=== PATIENT | female | born 2000 | race African-American/Black ===

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

== ENCOUNTER 2021-01-01 20:49 | Day surgery (SDC) | payer OTHER ==
[2021-01-01 22:51] VITALS: BMI 30.7
[2021-01-01] MEDS ORDERED: hydrALAZINE 20 MG/ML VIAL SLOW IVP PRN (23:17)
[2021-01-01] MEDS ORDERED: Lactated Ringer's 1,000 ML IV SCH ×2 (23:30→23:35)
[2021-01-01] MEDS ORDERED: Ondansetron PF 4 MG/2 ML Vial IVP SCH (23:30)
[2021-01-01] MEDS ORDERED: Bicitra 30 ML UDCUP PO SCH (23:45)
[2021-01-02 00:07] LABS: Anion Gap 18 mmol/L (10-20); BUN (Urea Nitrogen) 6 mg/dL (8.4-21.0); Calc. Creatinine Clearance 192 mL/min (70-130); Calcium 9.1 mg/dL (7.8-10.44); Carbon Dioxide 20 mmol/L (22-29); Chloride 102 mmol/L (98-107); Glucose 68 mg/dL (70-105); Potassium 3.7 mmol/L (3.5-5.1); Sodium 136 mmol/L (136-145)
== END 2021-01-02 01:25 | disposition home or self-care (01) ==
LOC: CSHERS 20:49 → CSHLD/OP 22:21
PROVIDERS: ATTEND Family Medicine
DX: O21.2 Late vomiting of pregnancy (principal); O99.891 Other specified diseases and conditions complicating pregnancy; R10.9 Unspecified abdominal pain; Z3A.25 25 weeks gestation of pregnancy; Z87.891 Personal history of nicotine dependence
CPT/HCPCS: 80048; 96360; 96361; 96375; 99283; J2405

== ENCOUNTER 2021-02-05 15:19 | Day surgery (SDC) | payer OTHER ==
[2021-02-05] MEDS ORDERED: hydrALAZINE 20 MG/ML VIAL SLOW IVP PRN (15:41)
[2021-02-05 16:46] LABS: #Basophils 0.1 10x3/uL (0.0-0.2); #Eosinphils 0.1 10x3/uL (0.0-0.5); #Monocytes 1.1 10x3/uL (0.0-1.1); #Neutrophils 9.1 10x3/uL (1.5-8.4); %Basophils 0.4 % (0.0-2.0); %Eosinophils 0.4 % (0.0-6.0); %Lymphocytes 23.8 % (18.0-47.0); %Monocytes 7.7 % (0.0-10.0); %Neutrophils 66.1 % (40.0-75.0); Hemoglobin 10.2 g/dL (12.0-15.5); Mean Corpuscular HGB CONC 33.9 g/dL (32.0-36.0); Mean Corpuscular Hemoglobin 31.1 pg (27.0-33.0); Mean Corpuscular Volume 91.8 fl (81.6-98.3); Mean Platelet Volume 10.3 fl (7.4-10.4); Platelet Count 207 10x3/uL (150-450); RBC Distribution Width 12.6 % (11.5-14.5); Red Blood Cell (RBC) Count 3.28 10x6/uL (3.90-5.03); White Blood Cell (WBC) Count 13.7 10x3/uL (3.5-10.5)
[2021-02-05 16:51] VITALS: BMI 30.7
== END 2021-02-05 18:53 | disposition home or self-care (01) ==
LOC: CSHLD/OP 15:19
PROVIDERS: ATTEND Family Medicine
DX: O99.891 Other specified diseases and conditions complicating pregnancy (principal); R55 Syncope and collapse; O99.013 Anemia complicating pregnancy, third trimester; D64.9 Anemia, unspecified; Z3A.30 30 weeks gestation of pregnancy
CPT/HCPCS: 85025; 93005; 93010

== ENCOUNTER 2022-01-12 00:44 | Emergency (ER) | payer OTHER | END 2022-01-12 01:53 | disposition left against medical advice (07) | LOC: CSHERS 00:44 | DX: Z53.21 Procedure and treatment not carried out due to patient leaving prior to being seen by health care provider (principal) ==

== ENCOUNTER 2023-07-08 05:30 | Inpatient (IN) | payer MEDICAID, OTHER ==
[2023-07-08 06:18] VITALS: BMI 34.5
[2023-07-08] MEDS ORDERED: Ondansetron PF 4 MG/2 ML Vial IVP PRN ×3 (06:18→18:42)
[2023-07-08] MEDS ORDERED: Misoprostol 200 MCG TAB PR PRN (06:18)
[2023-07-08] MEDS ORDERED: Methylergonovine 0.2 MG/ML VIAL IM PRN (06:18)
[2023-07-08] MEDS ORDERED: Ibuprofen 800 MG TAB PO PRN (06:18)
[2023-07-08] MEDS ORDERED: Acetaminophen 500 MG TAB PO PRN (06:18)
[2023-07-08] MEDS ORDERED: Promethazine HCl 25 MG/ML VIAL IM PRN ×3 (06:18→18:42)
[2023-07-08] MEDS ORDERED: Tranexamic Acid 1,000 MG/10 ML VIAL IVP PRN (06:18)
[2023-07-08] MEDS ORDERED: hydrALAZINE 20 MG/ML VIAL SLOW IVP PRN ×2 (06:18→18:42)
[2023-07-08] MEDS ORDERED: Carboprost 250 MCG/ML AMP IM PRN (06:18)
[2023-07-08] MEDS ORDERED: Lidocaine 1% (PF) 30 ML VIAL SC PRN (06:18)
[2023-07-08] MEDS ORDERED: HYDROcodone/Acetaminophen 5/325 mg Tablet PO PRN (06:18)
[2023-07-08] MEDS ORDERED: fentaNYL 50 mcg/mL 1 mL Vial SLOW IVP PRN (06:18)
[2023-07-08] MEDS ORDERED: Diphenoxylate HCl/Atropine Tablet PO PRN (06:18)
[2023-07-08] MEDS ORDERED: Oxytocin 30 units/NS 500 ML 500 ML IV SCH ×3 (06:30)
[2023-07-08] MEDS ORDERED: Lactated Ringer's 1,000 ML IV SCH (06:30)
[2023-07-08 07:01] LABS: Hematocrit 31.7 % (34.9-44.5); Hemoglobin 10.6 g/dL (12.0-15.5); Mean Corpuscular HGB CONC 33.4 g/dL (32.0-36.0); Mean Corpuscular Hemoglobin 29.3 pg (27.0-33.0); Mean Corpuscular Volume 87.6 fl (81.6-98.3); Mean Platelet Volume 9.9 fl (7.4-10.4); Platelet Count 207 10x3/uL (150-450); Red Blood Cell (RBC) Count 3.62 10x6/uL (3.90-5.03); White Blood Cell (WBC) Count 10.8 10x3/uL (3.5-10.5)
[2023-07-08 07:44] LABS: Syphilis Antibody Nonreactive (Nonreactive); Syphilis Antibody Index 0.13 S/CO (<1.00 Non-Reactive)
[2023-07-08 07:45] LABS: HBSAg Index 0.19 S/CO (0-0.99); Hep B Surf Ag - L&D Non-Reactive S/CO (NonReactive)
[2023-07-08] MEDS ORDERED: fentaNYL/Ropivacaine Epidural 100 ML ONE (08:13)
[2023-07-08] MEDS ORDERED: diphenhydrAMINE 50 MG/ML VIAL IVP PRN (11:16)
[2023-07-08] MEDS ORDERED: Moisturizing Cream (Eucerin) 113 GM JAR TOP PRN (11:16)
[2023-07-08] MEDS ORDERED: ePHEDrine Sulfate 50 MG/10 ML VIAL SLOW IVP PRN (11:16)
[2023-07-08] MEDS ORDERED: Acetaminophen 325 MG TAB PO PRN (11:16)
[2023-07-08] MEDS ORDERED: Lactated Ringer's 500 ML IV PRN (11:16)
[2023-07-08] MEDS ORDERED: Naloxone HCl 0.4 mg/ml Vial IVP PRN ×2 (11:16)
[2023-07-08] MEDS ORDERED: Communication Order-Pharmacy FS SCH (11:30)
[2023-07-08] MEDS ORDERED: fentaNYL 2 mcg/Ropivacaine 0.2% Epidural 100 ML CADD EPIDURAL SCH (11:30)
[2023-07-08] MEDS ORDERED: Bupivacaine 0.25% HCL 30 ML VIAL ONE (13:00)
[2023-07-08] MEDS ORDERED: Boostrix 0.5 ML (Tdap) VIAL (>/=7 yrs of age) IM ONE (18:42)
[2023-07-08] MEDS ORDERED: Benzocaine-Menthol 82.5 ML CAN TOP PRN (18:42)
[2023-07-08] MEDS ORDERED: diphenhydrAMINE 25 MG CAP PO PRN (18:42)
[2023-07-08] MEDS ORDERED: Bisacodyl 10 MG SUPP PR PRN (18:42)
[2023-07-08] MEDS ORDERED: Milk Of Magnesia 30 ML UDCUP PO PRN (18:42)
[2023-07-08] MEDS: Ibuprofen 800 MG TAB PO SCH (21:42)
[2023-07-08] MEDS: Docusate 100 MG CAP PO SCH (21:46)
[2023-07-09] MEDS: HYDROcodone/Acetaminophen 5/325 mg Tablet PO PRN ×5 (00:49→20:16)
[2023-07-09] MEDS: Ibuprofen 800 MG TAB PO SCH ×3 (05:03→20:16)
[2023-07-09] MEDS: Ferrous Sulfate 325 MG TAB PO SCH ×2 (07:37→16:25)
[2023-07-09] MEDS: Docusate 100 MG CAP PO SCH ×2 (09:11→20:16)
[2023-07-10] MEDS: HYDROcodone/Acetaminophen 5/325 mg Tablet PO PRN (02:33)
[2023-07-10] MEDS: Ibuprofen 800 MG TAB PO SCH ×2 (05:08→13:35)
[2023-07-10 07:43] VITALS: BP 122/78; TEMP 98.5
[2023-07-10] MEDS: Ferrous Sulfate 325 MG TAB PO SCH (09:10)
[2023-07-10] MEDS: Docusate 100 MG CAP PO SCH (09:25)
== END 2023-07-10 18:45 | disposition home or self-care (01) | DRG 807 ==
LOC: CSHLD 05:48 → CSHPP 20:23
PROVIDERS: ADMIT Family Medicine; ATTEND Family Medicine
PROC: 10E0XZZ Delivery of Products of Conception, External Approach (ICD-10-PCS; principal; 2023-07-08)
PROC: 10907ZC Drainage of Amniotic Fluid, Therapeutic from Products of Conception, Via Natural or Artificial Opening (ICD-10-PCS; 2023-07-08)
PROC: 3E033VJ Introduction of Other Hormone into Peripheral Vein, Percutaneous Approach (ICD-10-PCS; 2023-07-08)
DX: O80 Encounter for full-term uncomplicated delivery (principal); Z37.0 Single live birth; Z3A.39 39 weeks gestation of pregnancy
CPT/HCPCS: 36415; 51702; 85027; 86780; 86850; 86900; 86901; 87340; J2405; S0020

== ENCOUNTER 2024-03-23 12:34 | Outpatient (CLI) | payer OTHER | END 2024-03-23 12:35 | disposition home or self-care (01) | LOC: CSHULT 12:34 | DX: Z34.82 Encounter for supervision of other normal pregnancy, second trimester (principal) | CPT/HCPCS: 76805 ==

== ENCOUNTER 2024-06-22 08:50 | Inpatient (IN) | payer OTHER ==
[2024-06-22 09:18] VITALS: BMI 36.4
[2024-06-22] MEDS ORDERED: Tranexamic Acid 1,000 MG/10 ML VIAL IVP PRN (09:33)
[2024-06-22] MEDS ORDERED: hydrALAZINE 20 MG/ML VIAL SLOW IVP PRN ×2 (09:33→19:47)
[2024-06-22] MEDS ORDERED: Lidocaine 1% (PF) 30 ML VIAL SC PRN (09:33)
[2024-06-22] MEDS ORDERED: fentaNYL 50 mcg/mL 1 mL Vial SLOW IVP PRN (09:33)
[2024-06-22] MEDS ORDERED: Carboprost 250 MCG/ML AMP IM PRN (09:33)
[2024-06-22] MEDS ORDERED: Promethazine HCl 25 MG/ML VIAL IM PRN ×3 (09:33→19:47)
[2024-06-22] MEDS ORDERED: Diphenoxylate HCl/Atropine Tablet PO PRN (09:33)
[2024-06-22] MEDS ORDERED: HYDROcodone/Acetaminophen 5/325 mg Tablet PO PRN (09:33)
[2024-06-22] MEDS ORDERED: Misoprostol 200 MCG TAB PR PRN (09:33)
[2024-06-22] MEDS ORDERED: Methylergonovine 0.2 MG/ML VIAL IM PRN (09:33)
[2024-06-22] MEDS: Lactated Ringer's 1,000 ML IV SCH (09:40)
[2024-06-22] MEDS ORDERED: Penicillin G Potassium 5 MILL.UNITS in Sodium Chloride 0.9% 100 ML IVPB SCH (09:45)
[2024-06-22] MEDS: Penicillin G Potassium 5 MILL.UNITS VIAL ONE (09:45)
[2024-06-22] MEDS ORDERED: Oxytocin 30 units/NS 500 ML 500 ML IV SCH ×2 (09:45)
[2024-06-22 09:59] LABS: Hematocrit 31.4 % (34.9-44.5); Hemoglobin 10.2 g/dL (12.0-15.5); Mean Corpuscular HGB CONC 32.5 g/dL (32.0-36.0); Mean Corpuscular Hemoglobin 28.5 pg (27.0-33.0); Mean Corpuscular Volume 87.7 fL (81.6-98.3); Mean Platelet Volume 10.3 fL (7.4-10.4); Platelet Count 185 10x3/uL (150-450); RBC Distribution Width 13.8 % (11.5-14.5); Red Blood Cell (RBC) Count 3.58 10x6/uL (3.90-5.03); White Blood Cell (WBC) Count 8.9 10x3/uL (3.5-10.5)
[2024-06-22 10:38] LABS: Syphilis Antibody Nonreactive (Nonreactive)
[2024-06-22] MEDS: fentaNYL/Ropivacaine Epidural 100 ML ONE (10:38)
[2024-06-22 10:40] LABS: HBsAg Index 0.21 S/CO (0-0.99); Hep B Surf Ag - L&D Non-Reactive S/CO (NonReactive)
[2024-06-22] MEDS ORDERED: Moisturizing Cream (Eucerin) 113 GM JAR TOP PRN (10:40)
[2024-06-22] MEDS ORDERED: Lactated Ringer's 500 ML IV PRN (10:40)
[2024-06-22] MEDS ORDERED: Acetaminophen 325 MG TAB PO PRN (10:40)
[2024-06-22] MEDS ORDERED: diphenhydrAMINE 50 MG/ML VIAL IVP PRN (10:40)
[2024-06-22] MEDS ORDERED: Naloxone HCl 0.4 mg/ml Vial IVP PRN ×2 (10:40)
[2024-06-22] MEDS ORDERED: ePHEDrine Sulfate 50 MG/10 ML VIAL SLOW IVP PRN (10:40)
[2024-06-22] MEDS ORDERED: Ondansetron PF 4 MG/2 ML Vial IVP PRN ×2 (10:40→19:47)
[2024-06-22] MEDS ORDERED: fentaNYL 2 mcg/Ropivacaine 0.2% Epidural 100 ML CADD EPIDURAL SCH (10:45)
[2024-06-22] MEDS ORDERED: Communication Order-Pharmacy FS SCH (10:45)
[2024-06-22] MEDS: Ondansetron PF 4 MG/2 ML Vial IVP PRN (11:08)
[2024-06-22] MEDS: Oxytocin 30 units/NS 500 ML 500 ML IV SCH (11:14)
[2024-06-22] MEDS: Penicillin G 2.5 MILL.units 2.5 MILL.UNITS in Premix 1 BAG IVPB SCH (12:26)
[2024-06-22] MEDS: Acetaminophen 500 MG TAB PO PRN (18:10)
[2024-06-22] MEDS ORDERED: Benzocaine-Menthol 82.5 ML CAN TOP PRN (19:47)
[2024-06-22] MEDS ORDERED: Milk Of Magnesia 30 ML UDCUP PO PRN (19:47)
[2024-06-22] MEDS ORDERED: Bisacodyl 10 MG SUPP PR PRN (19:47)
[2024-06-22] MEDS ORDERED: diphenhydrAMINE 25 MG CAP PO PRN (19:47)
[2024-06-22] MEDS ORDERED: Boostrix 0.5 ML (Tdap) VIAL (>/=7 yrs of age) IM ONE (19:47)
[2024-06-22] MEDS: Docusate 100 MG CAP PO SCH (21:30)
[2024-06-22] MEDS: Ibuprofen 800 MG TAB PO SCH (21:30)
[2024-06-23] MEDS: HYDROcodone/Acetaminophen 5/325 mg Tablet PO PRN (01:42)
[2024-06-23] MEDS: Prenatal Vitamin 1 TAB PO SCH (07:31)
[2024-06-23] MEDS: Ferrous Sulfate 325 MG TAB PO SCH (08:57)
[2024-06-23 17:56] VITALS: BP 132/86; TEMP 98.1
== END 2024-06-23 18:15 | disposition home or self-care (01) | DRG 806 ==
LOC: CSHLD 08:50 → CSHPP 20:00
PROVIDERS: ADMIT Family Medicine; ATTEND Family Medicine
PROC: 10E0XZZ Delivery of Products of Conception, External Approach (ICD-10-PCS; principal; 2024-06-22)
PROC: 10907ZC Drainage of Amniotic Fluid, Therapeutic from Products of Conception, Via Natural or Artificial Opening (ICD-10-PCS; 2024-06-22)
DX: O99.824 Streptococcus B carrier state complicating childbirth (principal); O98.32 Other infections with a predominantly sexual mode of transmission complicating childbirth; Z37.0 Single live birth; Z3A.38 38 weeks gestation of pregnancy; Z79.82 Long term (current) use of aspirin; Z79.899 Other long term (current) drug therapy; A60.00 Herpesviral infection of urogenital system, unspecified
CPT/HCPCS: 51702; 85027; 86780; 86850; 86900; 86901; 87340; J2405; J2540; J2590; J7120

== ENCOUNTER 2025-07-13 19:00 | Inpatient (IN) | payer OTHER ==
[2025-07-13 21:55] VITALS: BMI 37.1
[2025-07-13] MEDS ORDERED: Diphenoxylate HCl/Atropine Tablet PO PRN (22:28)
[2025-07-13] MEDS ORDERED: hydrALAZINE 20 MG/ML VIAL SLOW IVP PRN (22:28)
[2025-07-13] MEDS ORDERED: Ondansetron PF 4 MG/2 ML Vial IVP PRN (22:28)
[2025-07-13] MEDS ORDERED: Lidocaine 1% (PF) 30 ML VIAL SC PRN (22:28)
[2025-07-13] MEDS ORDERED: Tranexamic Acid 1,000 MG/10 ML VIAL IVP PRN (22:28)
[2025-07-13] MEDS ORDERED: Carboprost 250 MCG/ML AMP IM PRN (22:28)
[2025-07-13] MEDS ORDERED: Acetaminophen 500 MG TAB PO PRN (22:28)
[2025-07-13] MEDS ORDERED: Methylergonovine 0.2 MG/ML VIAL IM PRN (22:28)
[2025-07-13] MEDS ORDERED: Ibuprofen 800 MG TAB PO PRN (22:30)
[2025-07-13] MEDS ORDERED: HYDROcodone/Acetaminophen 5/325 mg Tablet PO PRN (22:30)
[2025-07-13] MEDS ORDERED: Oxytocin 30 units/NS 500 ML 500 ML IV SCH (22:30)
[2025-07-13 22:57] LABS: Hematocrit 29.4 % (34.9-44.5); Hemoglobin 9.5 g/dL (12.0-15.5); Mean Corpuscular Hemoglobin 26.8 pg (27.0-33.0); Mean Corpuscular Volume 82.8 fL (81.6-98.3); Platelet Count 210 10x3/uL (150-450); Red Blood Cell (RBC) Count 3.55 10x6/uL (3.90-5.03); White Blood Cell (WBC) Count 9.24 10x3/uL (3.5-10.5)
[2025-07-13 23:19] LABS: Syphilis Antibody Index 0.14 S/CO (<1.00 Non-Reactive)
[2025-07-13 23:21] LABS: Hep B Surf Ag - L&D Non-Reactive S/CO (NonReactive)
[2025-07-14] MEDS: Penicillin G Potassium 5 MILL.UNITS in Sodium Chloride 0.9% 100 ML IVPB SCH (02:03)
[2025-07-14] MEDS: Penicillin G 2.5 MILL.units 2.5 MILL.UNITS in Premix 1 BAG IVPB SCH (05:53)
[2025-07-14] MEDS: Oxytocin 30 units/NS 500 ML 500 ML IV SCH (06:40)
[2025-07-14] MEDS ORDERED: Ondansetron PF 4 MG/2 ML Vial IVP PRN ×2 (11:43→19:58)
[2025-07-14] MEDS ORDERED: Acetaminophen 325 MG TAB PO PRN (11:43)
[2025-07-14] MEDS ORDERED: diphenhydrAMINE 50 MG/ML VIAL IVP PRN (11:43)
[2025-07-14] MEDS ORDERED: Communication Order-Pharmacy FS SCH (11:45)
[2025-07-14] MEDS ORDERED: fentaNYL 2 mcg/Ropivacaine 0.2% Epidural 100 ML CADD EPIDURAL SCH (11:45)
[2025-07-14] MEDS ORDERED: Bisacodyl 10 MG SUPP PR PRN (19:58)
[2025-07-14] MEDS ORDERED: Preparation H Ointment 28 GM TUBE PR PRN (19:58)
[2025-07-14] MEDS ORDERED: Boostrix 0.5 ML (Tdap) VIAL (>/=7 yrs of age) IM ONE (19:58)
[2025-07-14] MEDS ORDERED: Lanolin Ointment 7 GM TUBE TOP PRN (19:58)
[2025-07-14] MEDS ORDERED: Benzocaine-Menthol 82.5 ML CAN TOP PRN (19:58)
[2025-07-14] MEDS ORDERED: Milk Of Magnesia 30 ML UDCUP PO PRN (19:58)
[2025-07-14] MEDS ORDERED: diphenhydrAMINE 25 MG CAP PO PRN (19:58)
[2025-07-14] MEDS ORDERED: hydrALAZINE 20 MG/ML VIAL SLOW IVP PRN (19:58)
[2025-07-14] MEDS: Ibuprofen 800 MG TAB PO SCH (20:31)
[2025-07-14] MEDS: fentaNYL/Ropivacaine Epidural 100 ML ONE (20:54)
[2025-07-14] MEDS ORDERED: Bupivacaine 0.25% HCL 30 ML VIAL ONE (21:31)
[2025-07-14] MEDS: HYDROcodone/Acetaminophen 5/325 mg Tablet PO PRN (23:17)
[2025-07-15] MEDS: Ferrous Sulfate 325 MG TAB PO SCH (08:47)
[2025-07-15 11:43] VITALS: TEMP 98.2
[2025-07-15] MEDS: NIFEdipine XL 30 MG ER.TAB PO SCH (12:53)
[2025-07-15 15:50] VITALS: BP 128/80
== END 2025-07-15 18:30 | disposition home or self-care (01) | DRG 807 ==
LOC: CSHLD 20:42 → CSHPP 07-14 19:38
PROVIDERS: ADMIT Family Medicine; ATTEND Family Medicine
PROC: 10907ZC Drainage of Amniotic Fluid, Therapeutic from Products of Conception, Via Natural or Artificial Opening (ICD-10-PCS; 2025-07-14)
PROC: 10E0XZZ Delivery of Products of Conception, External Approach (ICD-10-PCS; principal; 2025-07-15)
PROC: 0UQMXZZ Repair Vulva, External Approach (ICD-10-PCS; 2025-07-15)
DX: O99.824 Streptococcus B carrier state complicating childbirth (principal); Z37.0 Single live birth; Z3A.39 39 weeks gestation of pregnancy; O71.82 Other specified trauma to perineum and vulva
CPT/HCPCS: 51702; 85027; 86780; 86850; 86900; 86901; 87340; J0665; J2540; J2590; J7120